=== PATIENT | male | born 1950 | race Caucasian/White ===

== ENCOUNTER → 2016-08-25 | Outpatient (CLI) | payer MEDICARE ==
[2014-09-24 07:30] VITALS: BP 124/73
[~2016-08-25] MED LIST: DIPH25CA58 PO; FLUT16SP2 NS; GADOBUTROL 7.5 MMOL/7.5 ML VIAL IV ONE; TYLENOL PM PO
--- NOTE | 2016-08-25 14:00 | KCIC ---
PROCEDURE MRI of the brain without and with contrast 08/25/2016 HISTORY Left facial numbness for 4 months. TECHNIQUE Unenhanced T1 weighted sagittal and axial and FLAIR, T2 weighted, and diffusion weighted axial images of the brain were obtained. Thin section T1 weighted and T2 weighted axial and coronal images through the brainstem to include the proximal trigeminal nerves were obtained. After the intravenous administration of 12 cc of Gadavist, enhanced T1 weighted axial and coronal images of the brain were obtained. Thin section T1 weighted axial and coronal images through the brainstem and proximal trigeminal nerves were obtained. FINDINGS There is generalized parenchymal atrophy. Patchy, confluent and multiple focal areas of abnormally increased signal intensity are seen within the periventricular and subcortical white matter of both cerebral hemispheres on the FLAIR and T2 weighted images consistent most likely with areas of small vessel ischemic disease. No acute parenchymal abnormality is seen. There is no MRI evidence of acute ischemia/infarction. No extra-axial fluid collection is noted. Images through the brainstem to include the IAC's and proximal trigeminal nerves are within normal limits. No abnormal soft tissue mass or area of abnormal contrast enhancement is noted. Normal flow voids are seen within the major vascular structures surrounding the brain parenchyma. Mild to moderate mucosal thickening is seen throughout the paranasal sinuses. A 2.5 centimeter mucous retention cyst is seen involving the right maxillary sinus. There are small bilateral mastoid effusions. IMPRESSION No acute parenchymal abnormality is seen. Electronically signed by: Den Gaviria MD (Aug 25, 2016 13:59:46)
== END | disposition home or self-care (01) ==
LOC: KCIC MRI 08:56
PROVIDERS: ATTEND Psychiatry & Neurology Neurology with Special Qualifications in Child Neurology
DX: G50.0 Trigeminal neuralgia (principal); M27.40 Unspecified cyst of jaw
CPT/HCPCS: 70553; 82565; A9585

== ENCOUNTER 2016-12-04 15:55 | Emergency (ER) | payer MEDICARE ==
[~2016-12-04] VITALS: Ht 182.9 cm; Wt 122.5 kg
[~2016-12-04 15:55] MED LIST changes: -GADOBUTROL 7.5 MMOL/7.5 ML VIAL IV ONE
--- NOTE | 2016-12-04 16:40 | PHYS DOC ---
Past Medical History Past Medical History: Diverticulitis, Diverticulosis, GI Bleed, Other Additional Past Medical Histor: TRIGEMINAL NEURALGIA Past Surgical History: Appendectomy, Other Additional Past Surgical Histo: HERNIA Alcohol Use: Rarely Drug Use: None Adult General Chief Complaint Chief Complaint: SHORTNESS OF BREATH HPI HPI Patient is a 66 year old male who presents with SOB. Patient reports since Monday he has been feeling increasingly SOB (more specifically he feels unable to take a deep breath of air). He also reports some mild epigastric discomfort, but denies that it is actually painful. No chest discomfort. Symptoms worse when lying down. No cough, no fever. No other acute complaints. Patient says if he has had any similar episodes in past they did not last more than 5 minutes before resolving spontaneously. Review of Systems Review of Systems Constitutional: Denies fever or chills Eyes: Denies change in visual acuity or eye pain HENT: Denies nasal congestion or sore throat Respiratory: SOB. Denies cough Cardiovascular: Denies chest pain GI: Epigastric fullness. Denies abdominal pain, nausea, vomiting, bloody stools or diarrhea : Denies dysuria or hematuria Musculoskeletal: Denies back pain or joint pain Integument: Denies rash or skin lesions Neurologic: Denies headache, focal weakness or sensory changes Allergies Allergies Allergies Coded Allergies Type Severity Reaction Last Updated Verified ibuprofen Allergy Intermediate BLEEDING PROBLEMS 12/04/16 Yes Physical Exam Physical Exam Constitutional: Well developed, well nourished, no acute distress, non-toxic appearance HENT: Normocephalic, atraumatic, bilateral external ears normal Neck: Normal range of motion, no stridor Cardiovascular: Heart rate normal, regular rhythm, no murmur Lungs & Thorax: Bilateral breath sounds clear to auscultation Abdomen: Bowel sounds normal, soft, non-distended, no TTP Skin: Warm, dry, no erythema, no rash Extremities: No obvious deformity, no edema Neurologic: Alert and oriented X 3, no gross deficits noted Psychologic: Affect normal, judgement normal, mood normal Current Patient Data Vital Signs Vital Signs Date Time Temp Pulse Resp B/P Pulse Ox O2 Delivery O2 Flow Rate FiO2 12/04/16 17:05 171/77 Room Air 12/04/16 16:53 70 22 100 12/04/16 16:22 98.1 98.1 Lab Values Laboratory Tests Test 12/04/16 16:33 White Blood Count 6.7x10^3/uL (4.0-11.0) Red Blood Count 4.96x10^6/uL (4.30-5.70) Hemoglobin 11.9g/dL (13.0-17.5) L Hematocrit 38.5% (39.0-53.0) L Mean Corpuscular Volume 78fL (79-100) L Mean Corpuscular Hemoglobin 24pg (25-35) L Mean Corpuscular Hemoglobin Concent 31g/dL (31-37) Red Cell Distribution Width 18.3% (11.5-14.5) H Platelet Count 182x10^3/uL (140-400) Neutrophils (%) (Auto) 67% (31-73) Lymphocytes (%) (Auto) 17% (24-48) L Monocytes (%) (Auto) 7% (0-9) Eosinophils (%) (Auto) 8% (0-3) H Basophils (%) (Auto) 1% (0-3) Neutrophils # (Auto) 4.5x10^3uL (1.8-7.7) Lymphocytes # (Auto) 1.1x10^3/uL (1.0-4.8) Monocytes # (Auto) 0.5x10^3/uL (0.0-1.1) Eosinophils # (Auto) 0.5x10^3/uL (0.0-0.7) Basophils # (Auto) 0.1x10^3/uL (0.0-0.2) Sodium Level 143mmol/L (136-145) Potassium Level 4.0mmol/L (3.5-5.1) Chloride Level 105mmol/L (98-107) Carbon Dioxide Level 26mmol/L (21-32) Anion Gap 12 (6-14) Blood Urea Nitrogen 14mg/dL (8-26) Creatinine 0.8mg/dL (0.7-1.3) Estimated GFR (Cockcroft-Gault) 96.4 Glucose Level 109mg/dL (70-99) H Calcium Level 8.6mg/dL (8.5-10.1) Total Bilirubin 0.3mg/dL (0.2-1.0) Direct Bilirubin 0.1mg/dL (0.0-0.2) Aspartate Amino Transferase (AST) 15U/L (15-37) Alanine Aminotransferase (ALT) 19U/L (16-63) Alkaline Phosphatase 104U/L (46-116) Troponin I Quantitative < 0.017ng/mL (0.000-0.055) NB-Zay-B-Type Natriuretic Peptide 42pg/mL (0-124) Total Protein 7.3g/dL (6.4-8.2) Albumin 3.7g/dL (3.4-5.0) Lipase 111U/L (73-393) Laboratory Tests 12/04/16 16:33 Laboratory Tests 12/04/16 16:33 EKG EKG EKG (my read): sinus rhythm, rate 71, LAD, intervals wnl, no acute ST/T changes Radiology/Procedures Radiology/Procedures CXR (my read): No significant change from prior 09/01/07 Course & Med Decision Making Course & Med Decision Making Pertinent Labs and Imaging studies reviewed. (See chart for details) Patient is 66 year old male who presents with dyspnea. Will check EKG, CXR, labs to evaluate. Patient declines need for any meds for symptoms. EKG and imaging results as above. Blood work largely unremarkable. Troponin and BNP wnl. Given duration of symptoms, single troponin is sufficient to r/o TX. Discussed results with patient, who would like to go home at this time. I spoke with his PCP, Dr. Zurita, regarding case and test results. Ok to send patient home , and patient will follow up as an outpatient tomorrow. I did give the patient strict return precautions should his symptoms worsen or if he develops new symptoms, such as chest pain. Patient agreeable with plan. Discharged home. Dragon Disclaimer Dragon Disclaimer This electronic medical record was generated, in whole or in part, using a voice recognition dictation system. Departure Departure Impression: Primary Impression: Breathing problem Disposition: HOME, SELF-CARE Condition: STABLE Referrals: SCAR ZURITA MD (PCP) Patient Instructions: Shortness of Breath Additional Instructions: Thank you for allowing us to provide care today in the Emergency Department. Call Dr. Zurita's office first thing in the morning to schedule an appointment to be seen tomorrow. Return promptly to the Emergency Department if you develop any new or concerning symptoms, such as increasing trouble with breathing or chest discomfort. CHANTAL LIN MD Dec 04, 2016 16:40
[2016-12-04 16:55] LABS: BASO # 0.1 x10^3/uL (0.0-0.2); BASO % 1 % (0-3); EOS % 8 % (0-3); HEMATOCRIT 38.5 % (39.0-53.0); HEMOGLOBIN 11.9 g/dL (13.0-17.5); LYMPH # 1.1 x10^3/uL (1.0-4.8); LYMPH % 17 % (24-48); MEAN CORPUSCULAR HEMOGLOBIN 24 pg (25-35); MEAN CORPUSCULAR HGB CONC 31 g/dL (31-37); MEAN CORPUSCULAR VOLUME 78 fL (79-100); MONO % 7 % (0-9); NEUT % 67 % (31-73); PLATELET COUNT 182 x10^3/uL (140-400); RED BLOOD COUNT 4.96 x10^6/uL (4.30-5.70); RED CELL DISTRIBUTION WIDTH 18.3 % (11.5-14.5); WHITE BLOOD COUNT 6.7 x10^3/uL (4.0-11.0)
[2016-12-04 17:00] LABS: CALCIUM 8.6 mg/dL (8.5-10.1); CREATININE 0.8 mg/dL (0.7-1.3); GFR 96.4
[2016-12-04 17:05] VITALS: BP 171/77
[2016-12-04 17:06] LABS: ALBUMIN 3.7 g/dL (3.4-5.0); DIRECT BILIRUBIN 0.1 mg/dL (0.0-0.2); TOTAL BILIRUBIN 0.3 mg/dL (0.2-1.0); TOTAL PROTEIN 7.3 g/dL (6.4-8.2)
--- NOTE | 2016-12-04 17:27 | EKG ---
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
--- NOTE | 2016-12-05 07:56 | RAD ---
Chest, 2 views, 12/04/2016: History: Shortness of breath The heart size and pulmonary vascularity are normal. No pulmonary infiltrates are seen. There is no evidence of pleural fluid. There is mild bony ankylosis in the thoracic spine. IMPRESSION: No acute cardiopulmonary abnormality is detected.
[2016-12-05] MEDS ORDERED: CARB200T PO (14:33)
== END 2016-12-04 18:54 | disposition home or self-care (01) ==
LOC: ER 15:55
DX: R06.02 Shortness of breath (principal); R10.13 Epigastric pain; Z90.49 Acquired absence of other specified parts of digestive tract; Z88.8 Allergy status to other drugs, medicaments and biological substances
CPT/HCPCS: 36415; 71020; 80048; 80076; 83690; 83880; 84484; 85027; 93005; 99285-25

== ENCOUNTER 2016-12-07 00:19 | Emergency (ER) | payer MEDICARE ==
[~2016-12-07] VITALS: Ht 182.9 cm; Wt 122.5 kg
[~2016-12-07 00:19] MED LIST changes: +CARB200T PO
[2016-12-07 00:20] VITALS: BP 144/65
[2016-12-07] MEDS ORDERED: MECL12.52 PO (01:48)
--- NOTE | 2016-12-07 01:48 | PHYS DOC ---
Past Medical History Past Medical History: Diverticulitis, Diverticulosis, GI Bleed, Other Additional Past Medical Histor: TRIGEMINAL NEURALGIA Past Surgical History: Appendectomy, Other Additional Past Surgical Histo: HERNIA Alcohol Use: Rarely Drug Use: None Adult General Chief Complaint Chief Complaint: DIZZY/LIGHT HEADED HPI HPI Patient is a 66 year old male who presents with dizziness. Patient had just been admitted to hospital for shortness of breath and undergone extensive workup. He was discharged this evening. After getting home, he took a total of 4 tablets of simethicone for gas. After doing this he started feeling dizzy and short of breath again. He is feeling better now after arriving to the emergency department. No other acute complaints. Review of Systems Review of Systems Constitutional: Denies fever or chills Eyes: Denies change in visual acuity or eye pain HENT: Denies nasal congestion or sore throat Respiratory: Shortness of breath now resolved Cardiovascular: Denies chest pain GI: Denies abdominal pain, nausea, vomiting, bloody stools or diarrhea : Denies dysuria or hematuria Musculoskeletal: Denies back pain or joint pain Integument: Denies rash or skin lesions Neurologic: Episode of dizziness. Denies headache, focal weakness or sensory changes Allergies Allergies Allergies Coded Allergies Type Severity Reaction Last Updated Verified ibuprofen Allergy Intermediate BLEEDING PROBLEMS 12/04/16 Yes Physical Exam Physical Exam Constitutional: Well developed, well nourished, no acute distress, non-toxic appearance HENT: Normocephalic, atraumatic, bilateral external ears normal Eyes: EOMI, conjunctiva normal, no discharge Neck: Normal range of motion, no stridor Cardiovascular: Heart rate normal, regular rhythm, no murmur Lungs & Thorax: Bilateral breath sounds clear to auscultation Abdomen: Bowel sounds normal, soft, non-distended, no TTP Skin: Warm, dry, no erythema, no rash Extremities: No obvious deformity, no edema Neurologic: Alert and oriented X 3, strength and sensation to light touch intact and symmetrical throughout, no gross deficits noted Psychologic: Affect normal, judgement normal, mood normal Current Patient Data Vital Signs Vital Signs Date Time Temp Pulse Resp B/P Pulse Ox O2 Delivery O2 Flow Rate FiO2 12/07/16 00:20 97.8 69 15 144/65 100 Room Air 97.8 EKG EKG EKG (my read): sinus rhythm, rate 60, LAD, intervals wnl, no acute ischemic changes Radiology/Procedures Radiology/Procedures [] Course & Med Decision Making Course & Med Decision Making Pertinent Labs and Imaging studies reviewed. (See chart for details) Patient is 66-year-old male who presents after episode of dizziness and shortness of breath. Had just undergone extensive workup for shortness of breath , will not pursue any further workup as he is asymptomatic at this time. Dizziness possibly due to vertigo. EKG obtained, no acute abnormality per my read. Patient monitored in the emergency department and remains asymptomatic on reexamination. Discharged home with prescription for meclizine, instructions for follow-up, return precautions. Dragon Disclaimer Dragon Disclaimer This electronic medical record was generated, in whole or in part, using a voice recognition dictation system. Departure Departure Impression: Primary Impression: Benign positional vertigo Disposition: HOME, SELF-CARE Condition: STABLE Referrals: SCAR ZURITA MD (PCP) Patient Instructions: Benign Positional Vertigo Additional Instructions: Thank you for allowing us to provide care today in the Emergency Department. Take the provided medication as directed. Be aware that this medicine may make you drowsy. Schedule a follow up appointment with your primary care doctor. Return promptly to the Emergency Department if you develop any new or concerning symptoms. Scripts Meclizine Hcl 12.5 Mg Tablet1 Tab PO TID PRN vertigo #15 TAB Prov:CHANTAL LIN MD 12/07/16 CHANTAL LIN MD Dec 07, 2016 01:48
--- NOTE | 2016-12-07 08:36 | EKG ---
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
== END 2016-12-07 01:55 | disposition home or self-care (01) ==
LOC: ER 00:19
DX: H81.10 Benign paroxysmal vertigo, unspecified ear (principal); R06.02 Shortness of breath; Z88.6 Allergy status to analgesic agent
CPT/HCPCS: 93005; 99284-25